=== PATIENT | female | born 1975 | race Caucasian/White ===

== ENCOUNTER 2017-02-01 02:42 | Emergency (ER) | payer BC, MEDICARE ==
--- NOTE | 2017-02-01 03:24 | ERPHSYRPT ---
- History of Present Illness Time Seen by Provider: 02/01/17 03:19 Source: patient Exam Limitations: no limitations Patient Subjective Stated Complaint: Pt sts that she sees Dr. Mcmahan for chronic pain, sts that she is supposed to see pain management, sts that Dr. Mcmahan wrote her a Rx for fentanyl patches wheich she has used for some time, sts that starting in November insurance no longer would cover them. Sts that her has been paying for one patch per week out of pocket until 2 weeks ago. Sts that she has been using her breakthrough [place] 7.5 more often due to dealing with withdrawal symptoms. Pt sts tonight with withdrawal symptoms of headache, feeling "nasty and irritable", cold, shaky, and like her mind is racing. Pt sts that she takes pain meds due to 3 back surgeries. Sts normal tolerable pain is 5/10, sts tonight pain is 7-8/10. Triage Nursing Assessment: Pt alert, oriented, answers all questions appropriately however has flight of ideas. Skin p/w/d, resps non-labored. Pt to room per wheelchair, able to transfer self wheelchair to bed. Pt resps non- labored. Lungs CTA bilat non-labored. Physician History: This is a 41-year-old white female who has a history of chronic back pain and a history of degenerative disc disease she has been seeing Dr. Mcmahan for this she has been prescribed fentanyl patches in the past and she has also been placed on hydrocodone for breakthrough pain She states that she has not been able to get her insurance to pay for her fentanyl patches and she has not had a patch for 2 weeks she states that she had been having the fentanyl patches purchased one at a time by her but the last when she got was 2 weeks ago She states that she has been given prescription of hydrocodone that she has been taking this more than she is supposed to for breakthrough pain. She apparently has been the referred to or is planning on being referred to a pain pest control operator She shows up stating she is having pain and she is requesting more pain medicines. Past medical history includes migraines, anxiety, degenerative disc disease, GERD, gallbladder disease, anxiety, bipolar disorder, chronic pain, fibromyalgia , diverticulosis, polycystic ovary disease, microdiscectomy Past surgical history includes , thermal ablation, D&C, back surgery Timing/Duration: week(s) (patient with chronic pain states she has not had a fentanyl patch for 2 weeks states states that she has a couple [place] tablets left) Severity: moderate Modifying Factors: Improves With: nothing Associated Symptoms: malaise (chronic back pain), No nausea, No vomiting, No abdominal pain, No shortness of breath, No heartburn, No diaphoresis, No cough, No chills, No chest pain, No fever, No headaches, No loss of appetite, No syncope, No seizure, No weakness Allergies/Adverse Reactions: No Known Drug Allergies Allergy (Verified 02/01/17 03:06) Home Medications: Cyclobenzaprine HCl [Flexeril] 10 mg PO TID PRN 12/18/13 [History] Fentanyl 75Mcg Patch [Duragesic 75 MCG Patch] 75 mcg TOP Q3D 12/18/13 [ History] Fluticasone Propionate [Flonase NASAL] 2 spray NS DAILY 12/18/13 [History] Meloxicam 7.5 mg [Mobic 7.5 MG] 7.5 mg PO UD 12/18/13 [History] Omeprazole 20 MG [Prilosec 20 mg] 40 mg PO HS 12/18/13 [History] Propranolol HCl [Inderal LA] 80 mg PO DAILY 12/18/13 [History] Sumatriptan Succinate [Imitrex 50 mg] 100 mg PO DAILY PRN PRN 12/18/13 [History] Gabapentin [Neurontin] 300 mg PO TID 05/10/14 [History] Betamethasone Valerate 1 applic TOP DAILY 02/09/16 [History] Buspirone HCl 5 mg [Buspar 5 mg] 5 mg PO BID 02/09/16 [History] Lorazepam 1 mg [Ativan 1 MG] 0.5 mg PO TID 02/09/16 [History] Topiramate 100 mg [Topamax 100 MG] 100 mg PO BID 02/09/16 [History] Amoxicillin/Potassium Clav [Augmentin 875-125 Tablet] 875 mg PO BID 02/01/17 [ History] Hydrocodone Bit/Acetaminophen [[place] 7.5-325 Tablet] 1 each PO DAILY 02/01/17 [ History] Trazodone HCl 100 mg PO HS 02/01/17 [History] Venlafaxine HCl [Effexor Xr] 150 mg PO DAILY 02/01/17 [History] Ziprasidone HCl [Geodon] 160 mg PO HS 02/01/17 [History] Zydus 20 mg PO DAILY 02/01/17 [History] Hx Influenza Vaccination/Date Given: Yes (2012) Hx Pneumococcal Vaccination/Date Given: Yes (2012) Immunizations Up to Date: Yes - Review of Systems Constitutional: No Fever, No Chills Eyes: No Symptoms Ears, Nose, & Throat: No Symptoms Respiratory: No Cough, No Dyspnea Cardiac: No Chest Pain, No Edema, No Syncope Abdominal/Gastrointestinal: No Abdominal Pain, No Nausea, No Vomiting, No Diarrhea Genitourinary Symptoms: No Dysuria Musculoskeletal: Back Pain, No Neck Pain Skin: No Rash Neurological: Other (patient states she feels anxious because she is running out of pain mrds) Psychological: No Symptoms Endocrine: No Symptoms All Other Systems: Reviewed and Negative - Past Medical History Pertinent Past Medical History: Yes Neurological History: Migraines ENT History: Other Cardiac History: High Cholesterol Respiratory History: No Pertinent History Endocrine Medical History: No Pertinent History Musculoskeletal History: Other GI Medical History: GERD, Gallbladder Disease History: No Pertinent History Psycho-Social History: Anxiety, Bipolar Female Reproductive Disorders: Other Other Medical History: chronic pain problems - Past Surgical History Past Surgical History: Yes Neuro Surgical History: No Pertinent History Cardiac: No Pertinent History Respiratory: No Pertinent History Gastrointestinal: Cholecystectomy Genitourinary: No Pertinent History Musculoskeletal: Other Female Surgical History: Section, Tubal Ligation Other Surgical History: 3 back surgeries - Social History Smoking Status: Never smoker Exposure to second hand smoke: No Drug Use: none Patient Lives Alone: No - Female History Hx Last Menstrual Period: 01/23/2017 - Nursing Vital Signs Nursing Vital Signs: Initial Vital Signs Temperature 97.7 F Temperature Source Oral Pulse Rate 79 Respiratory Rate 16 Blood Pressure [Right Arm] 100/69 Pain Intensity 8 - Physical Exam General Appearance: no apparent distress, alert, other (Well-developed well- nourished white female she does not appear to be in acute distress) Eye Exam: PERRL/EOMI, eyes nml inspection Ears, Nose, Throat Exam: normal ENT inspection, TMs normal, pharynx normal, moist mucous membranes Neck Exam: normal inspection, non-tender, supple, full range of motion Respiratory Exam: normal breath sounds, lungs clear, No respiratory distress Cardiovascular Exam: regular rate/rhythm, normal heart sounds, normal peripheral pulses Gastrointestinal/Abdomen Exam: soft, normal bowel sounds, No tenderness, No mass Back Exam: normal inspection, normal range of motion, No CVA tenderness, No vertebral tenderness Extremity Exam: normal inspection, normal range of motion, pelvis stable Neurologic Exam: alert, oriented x 3, cooperative, normal mood/affect, nml cerebellar function, nml station & gait, sensation nml, No motor deficits Skin Exam: normal color, warm, dry, No rash Lymphatic Exam: No adenopathy SpO2 Interpretation: normal (98%) SpO2: 98 Oxygen Delivery: Room Air Ordered Tests: Medication Summary Discontinued Medications Generic Name Dose Route Start Last Admin Trade Name Armandq PRN Reason Stop Dose Admin Ketorolac Tromethamine 60 mg 02/01/17 03:37 02/01/17 03:42 Toradol 30 Mg Injection IM 02/01/17 03:38 60 mg STAT ONE Administration Ketorolac Tromethamine Confirm 02/01/17 03:38 Toradol 30 Mg Injection Administered 02/01/17 03:39 Dose 30 mg .ROUTE .STK-MED ONE Ketorolac Tromethamine Confirm 02/01/17 03:43 Toradol 30 Mg Injection Administered 02/01/17 03:44 Dose 30 mg .ROUTE .STK-MED ONE Promethazine HCl Confirm 02/01/17 03:38 Phenergan 25 Mg Inj Administered 02/01/17 03:39 Dose 25 mg .ROUTE .STK-MED ONE - Progress Progress: improved Progress Note: 02/01/17 03:29 Is a 41-year-old white female with history of chronic pain who has been on fentanyl in the past she states she hasn't gotten prescription from Dr. Mcmahan for fentanyl patches however she states she's been having problems paying for them she states her last fentanyl patch was 2 weeks ago. She states she believes that she has more available to her but she cannot afford to pay for them she further states that she has a prescription for hydrocodone 7.5/325 tablets which she filled on December 03, 2016 which was for breakthrough pain she states she has been taking more these and she is supposed to she has told the nurse that she has a couple of these with her she also was prescrib lorazepam 0.5 mg which she was given 45 tablets on January 19, 2017 she states she does have lorazepam at home. She feels like she is having withdrawal from narcotics and she is interested in receiving pain medications here. I have reviewed the patient's inspect report she has been receiving fentanyl patches the last time was January 19, 2017 she appears to have been receiving these approximately once a week dating back to December 03, 2016 patient has also been given a prescription for Ativan 0.5 mg #45 dated the 2016 and this appears to have been on a fairly regular basis as well patient had also received is noted hydrocodone 7. 5/02/16 #90 tablets on December 03, 2016 Patient really does not appear to be in acute withdrawal she is in no distress she appears to be quite relaxed Physical examination some mild tenderness on her posterior lumbar region bilaterally. Vitals are stable. I've discussed the case with Dr. Mcmahan, I told her that the patient really does not appear to be in acute withdrawal. Dr. Mcmahan states that she would prefer I do not give the patient narcotic analgesia at this time. She would like to have the patient contact her office tomorrow morning. Patient also has indicated that she had planning on seeing a pain pest control operator at some time. I have offered the patient an injection of Toradol she states she would be happy to receive this. an injection of Phenergan actually give her tablet has no actual her we'll give her I also will give patient Phenergan 25 mg IM. The patient really does not exhibit the usual symptoms that I have seen in the past with narcotic withdrawal. 02/01/17 03:43 I had considered giving the patient Phenergan however patient is apparently on Geodon, therefore I have decided not to give the patient Phenergan prescription due to interaction with Geodon and concern for prolongation of QT interval. will destroy the prescription. Initial order was placed for Phenergan however this was discontinued. Patient will be given Toradol IM. - Departure Time of Disposition: 03:34 Departure Disposition: Home Clinical Impression: Chronic back pain, rule out narcotic seeking behavior Condition: Fair Critical Care Time: No Referrals: ZHANG MCMAHAN [Primary Care Provider] - Additional Instructions: Return home. Plenty of fluids. Narcotic analgesia as prescribed by your family doctor. Continue other medications as prescribed by your family doctor. Follow-up with your family doctor call her office tomorrow morning. Return for acute distress or for severe symptoms. Prescriptions: Promethazine HCl 25 mg [Phenergan 25 mg] 25 mg PO Q4-6HPRN PRN #12 tablet PRN Reason: nausea and vomiting
[2017-02-01] MEDS ORDERED: TORAdol 30 mg Injection IM ONE (03:37)
[2017-02-01] MEDS ORDERED: TORAdol 30 mg Injection ONE ×2 (03:38→03:43)
[2017-02-01] MEDS ORDERED: Phenergan 25 MG INJ ONE (03:38)
[2017-02-01 04:22] VITALS: BP 99/61; PULSE 56; O2SAT 96
== END 2017-02-01 04:10 | disposition home or self-care (01) ==
LOC: ED 02:42
DX: M54.9 Dorsalgia, unspecified (principal); G89.29 Other chronic pain; E78.00 Pure hypercholesterolemia, unspecified
CPT/HCPCS: 96372; 99283; J1885; J2550

== ENCOUNTER 2018-08-07 16:54 | Emergency (ER) | payer BC, MEDICARE ==
--- NOTE | 2018-08-07 17:11 | ERPHSYRPT ---
- History of Present Illness Time Seen by Provider: 08/07/18 17:10 Source: patient Exam Limitations: no limitations Physician History: 42 y/o white female presents with low back pain worsening over 2 days. pt denies trauma or fall. pt is morbidly obese and has chronic lbp. pt has flare up of her lbp once or twice a year. pt has had low back surgery in the past. her usual daily preventive back pain meds not helping. they include, gabapentin , flexeril and meloxicam. Timing/Duration: day(s) (2) Method of Injury: unknown (no known trauma or injury) Quality: sharp, cramping, other (spasm) Back Pain Location: lumbar spine, paraspinous muscles Severity of Pain-Max: moderate Severity of Pain-Current: moderate Modifying Factors: Improves With: movement (worsens) Associated Symptoms: lower back pain, muscle spasms, No fever, No chills, No urinary incontinence, No nausea, No vomiting, No weakness, No sensory/motor loss , No tingling in legs/feet Previous symptoms: same symptoms as today Allergies/Adverse Reactions: No Known Drug Allergies Allergy (Verified 02/01/17 03:06) Home Medications: Cyclobenzaprine HCl [Flexeril] 10 mg PO TID PRN 12/18/13 [History] Fentanyl 75Mcg Patch [Duragesic 75 MCG Patch] 75 mcg TOP Q3D 12/18/13 [ History] Fluticasone Propionate [Flonase NASAL] 2 spray NS DAILY 12/18/13 [History] Meloxicam 7.5 mg [Mobic 7.5 MG] 7.5 mg PO UD 12/18/13 [History] Omeprazole 20 MG [Prilosec 20 mg] 40 mg PO HS 12/18/13 [History] Propranolol HCl [Inderal LA] 80 mg PO DAILY 12/18/13 [History] SUMAtriptan succinate [Imitrex 50 mg] 100 mg PO DAILY PRN PRN 12/18/13 [History] Gabapentin [Neurontin] 300 mg PO TID 05/10/14 [History] Betamethasone Valerate 1 applic TOP DAILY 02/09/16 [History] Buspirone HCl 5 mg [Buspar 5 mg] 5 mg PO BID 02/09/16 [History] Lorazepam 1 mg [Ativan 1 MG] 0.5 mg PO TID 02/09/16 [History] Topiramate 100 mg [Topamax 100 MG] 100 mg PO BID 02/09/16 [History] Amoxicillin/Potassium Clav [Augmentin 875-125 Tablet] 875 mg PO BID 02/01/17 [ History] Hydrocodone Bit/Acetaminophen [[place] 7.5-325 Tablet] 1 each PO DAILY 02/01/17 [ History] Trazodone HCl 100 mg PO HS 02/01/17 [History] Venlafaxine HCl [Effexor Xr] 150 mg PO DAILY 02/01/17 [History] Ziprasidone HCl [Geodon] 160 mg PO HS 02/01/17 [History] Zydus 20 mg PO DAILY 02/01/17 [History] Hx Influenza Vaccination/Date Given: Yes (2012) Hx Pneumococcal Vaccination/Date Given: Yes (2012) - Review of Systems Constitutional: No Symptoms, No Fever, No Chills Eyes: No Symptoms, No Discharge, No Eye Pain Ears, Nose, & Throat: No Symptoms, No Ear Pain Respiratory: No Symptoms, No Cough, No Dyspnea, No Stridor, No Wheezing Cardiac: No Symptoms, No Chest Pain, No Palpitations, No Syncope Abdominal/Gastrointestinal: No Symptoms, No Abdominal Pain, No Nausea, No Vomiting, No Diarrhea Genitourinary Symptoms: No Symptoms, No Dysuria, No Frequency, No Hematuria Musculoskeletal: Back Pain Skin: No Symptoms, No Cellulitis Neurological: No Symptoms, No Dizziness, No Headache Psychological: No Symptoms, No Anxiety Endocrine: No Symptoms Hematologic/Lymphatic: No Symptoms Immunological/Allergic: No Symptoms All Other Systems: Reviewed and Negative - Past Medical History Pertinent Past Medical History: Yes Neurological History: Migraines ENT History: Other Cardiac History: High Cholesterol Respiratory History: No Pertinent History Endocrine Medical History: No Pertinent History Musculoskeletal History: Other GI Medical History: GERD, Gallbladder Disease History: No Pertinent History Psycho-Social History: Anxiety, Bipolar Female Reproductive Disorders: Other Other Medical History: chronic pain problems - Past Surgical History Past Surgical History: Yes Neuro Surgical History: No Pertinent History Cardiac: No Pertinent History Respiratory: No Pertinent History Gastrointestinal: Cholecystectomy Genitourinary: No Pertinent History Musculoskeletal: Other Female Surgical History: Section, Tubal Ligation Other Surgical History: 3 back surgeries - Social History Smoking Status: Never smoker Exposure to second hand smoke: No Drug Use: none Patient Lives Alone: No - Physical Exam General Appearance: moderate distress, alert, anxiety Eye Exam: PERRL/EOMI, eyes nml inspection Ears, Nose, Throat Exam: normal ENT inspection Neck Exam: normal inspection, non-tender, supple, full range of motion Respiratory Exam: normal breath sounds, lungs clear, No chest tenderness, No respiratory distress, No airway intact, No accessory muscle use, No rhonchi, No wheezing Cardiovascular Exam: regular rate/rhythm, normal heart sounds, normal peripheral pulses Gastrointestinal Exam: soft, normal bowel sounds, No tenderness, No guarding, No rebound Pelvic Exam: not done Rectal Exam: not done Back Exam: normal inspection, decreased range of motion, muscle spasm, No vertebral tenderness Extremity Exam: normal inspection, normal range of motion, pelvis stable Neurologic Exam: alert, oriented x 3, cooperative, can operator II-XII nml as tested Skin Exam: normal color, warm, dry Lymphatic Exam: No adenopathy SpO2 Interpretation: normal Oxygen Delivery: Room Air - Course Nursing assessment & vital signs reviewed: Yes Ordered Tests: Medication Summary Discontinued Medications Generic Name Dose Route Start Last Admin Trade Name Freq PRN Reason Stop Dose Admin Diazepam 5 mg 08/07/18 17:21 Valium 10 Mg/2 Ml Syringe IM 08/07/18 17:22 STAT ONE Hydromorphone HCl 1 mg 08/07/18 17:18 Hydromorphone 1 Mg/Ml Ampule IM 08/07/18 17:19 STAT ONE Methylprednisolone Sodium Succinate 125 mg 08/07/18 17:20 Solu-Medrol 125 Mg IM 08/07/18 17:21 STAT ONE Promethazine HCl 12.5 mg 08/07/18 17:18 Phenergan 25 Mg Inj IM 08/07/18 17:19 STAT ONE - Progress Progress: pain not gone completely, re-examined Counseled pt/family regarding: diagnosis, need for follow-up - Departure Time of Disposition: 17:31 Departure Disposition: Home Clinical Impression: Low back pain Condition: Stable Critical Care Time: No Referrals: ZHANG BLANCAS [Primary Care Provider] - Additional Instructions: continue your medication as prescribed. follow up with your prescribing doctor tomorrow for further management Prescriptions: Hydrocodone/APAP 5/325 [[place] 5/325 mg] 1 each PO Q12H PRN PRN #4 tablet MDD 2 PRN Reason: Pain Prednisone 10 mg [Deltasone 10 mg] 10 mg PO TID #12 tablet
[2018-08-07] MEDS ORDERED: Hydromorphone 1 mg/ml Ampule IM ONE (17:18)
[2018-08-07] MEDS ORDERED: Phenergan 25 MG INJ IM ONE (17:18)
[2018-08-07] MEDS ORDERED: solu-MEDROL 125 MG IM ONE (17:20)
[2018-08-07] MEDS ORDERED: VALIUM 10 MG/2 ML SYRINGE IM ONE (17:21)
[2018-08-07] MEDS ORDERED: Phenergan 25 MG INJ ONE (17:31)
[2018-08-07] MEDS ORDERED: solu-MEDROL 125 MG ONE (17:32)
[2018-08-07] MEDS ORDERED: Hydromorphone 1 mg/ml Ampule ONE (17:32)
[2018-08-07 18:14] VITALS: BP 103/61; PULSE 81; O2SAT 94
== END 2018-08-07 19:16 | disposition home or self-care (01) ==
LOC: ED 16:54
DX: M54.5 Low back pain (principal); M62.830 Muscle spasm of back; Z79.899 Other long term (current) drug therapy
CPT/HCPCS: 96372; 99284; J1170; J2550; J2930; J3360

== ENCOUNTER 2021-09-20 13:46 | Day surgery (SDC) | payer BC, MEDICARE ==
[2021-09-20] MEDS ORDERED: DIPRIVAN 200 MG/20 ML IV ONE (13:47)
[2021-09-20] MEDS ORDERED: Depo-Medrol 40 MG/ML IM ONE (13:47)
[2021-09-20] MEDS ORDERED: Xylocaine 1% Vial 30 ML PF IJ ONE (13:47)
[2021-09-20] MEDS ORDERED: LIDOCAINE HCL 2% 100 MG/5 ML IJ ONE (13:47)
--- NOTE | 2021-09-20 17:09 | XRAY ---
Indication: Bilateral L4-S1 MBB. Intraoperative fluoroscopy provided for 15 seconds. Single digital spot image submitted for interpretation demonstrate posterior needle tips projecting over the expected left and right L4-S1 nerve roots. Correlate with intraoperative findings/report.
[2021-09-20] MEDS ORDERED: Lactated Ringers 1,000 ML IV ONE (17:28)
--- NOTE | 2021-09-20 17:29 | XRAY ---
15 seconds fluoroscopy time in surgery for bilateral L4-S1 MBB.
== END 2021-09-20 16:18 | disposition home or self-care (01) ==
LOC: SDC-PAIN 13:46
PROVIDERS: ATTEND Psychiatry & Neurology Pain Medicine
DX: M47.816 Spondylosis without myelopathy or radiculopathy, lumbar region (principal); F32.9 Major depressive disorder, single episode, unspecified; F41.9 Anxiety disorder, unspecified; I51.9 Heart disease, unspecified; G43.909 Migraine, unspecified, not intractable, without status migrainosus; M19.90 Unspecified osteoarthritis, unspecified site; E28.2 Polycystic ovarian syndrome; Z79.899 Other long term (current) drug therapy
CPT/HCPCS: 64493; 64494; 72020; 77002; 84703; J1030; J2001; J2704

== ENCOUNTER 2021-10-11 12:43 | Day surgery (SDC) | payer BC, MEDICARE ==
[2021-10-11] MEDS ORDERED: BUPIVACAINE 0.5% VIAL IJ ONE (12:44)
[2021-10-11] MEDS ORDERED: Depo-Medrol 40 MG/ML IM ONE (12:44)
[2021-10-11] MEDS ORDERED: DIPRIVAN 200 MG/20 ML IV ONE (14:25)
[2021-10-11] MEDS ORDERED: Lactated Ringers 1,000 ML IV ONE (14:50)
--- NOTE | 2021-10-11 15:15 | XRAY ---
Indication: Bilateral L4-S1 MBB. Intraoperative fluoroscopy provided for 12 seconds. Single digital spot image submitted for interpretation demonstrates posterior needle tips projecting over the expected left and right L4-S1 nerve roots. Correlate with intraoperative findings/report.
--- NOTE | 2021-10-11 15:28 | XRAY ---
12 seconds fluoroscopy time in surgery for bilateral L4-S1 MBB.
== END 2021-10-11 15:05 | disposition home or self-care (01) ==
LOC: SDC-PAIN 12:43
PROVIDERS: ATTEND Psychiatry & Neurology Pain Medicine
DX: M47.816 Spondylosis without myelopathy or radiculopathy, lumbar region (principal); Z79.891 Long term (current) use of opiate analgesic
CPT/HCPCS: 64493; 64494; 72020; 77002; 84703; J1030; J2704

== ENCOUNTER 2021-11-15 12:30 | Day surgery (SDC) | payer BC, MEDICARE ==
[2021-11-15] MEDS ORDERED: BUPIVACAINE 0.5% VIAL IJ ONE (12:31)
[2021-11-15] MEDS ORDERED: DIPRIVAN 200 MG/20 ML IV ONE (12:31)
[2021-11-15] MEDS ORDERED: Depo-Medrol 40 MG/ML IM ONE (12:31)
[2021-11-15] MEDS ORDERED: Xylocaine 1% Vial 30 ML PF IJ ONE (12:31)
[2021-11-15] MEDS ORDERED: Lactated Ringers 1,000 ML IV ONE (14:13)
--- NOTE | 2021-11-15 16:48 | XRAY ---
Indication: Right L4-S1 RFA. Intraoperative fluoroscopy provided for 23 seconds. 3 digital spot image submitted for interpretation demonstrates posterior needle tips projecting over the expected right L4-S1 nerve roots. Correlate with intraoperative findings/report.
--- NOTE | 2021-11-15 16:50 | XRAY ---
23 seconds of fluoroscopy was used in surgery for a right L4-S1 RFA.
== END 2021-11-15 15:15 | disposition home or self-care (01) ==
LOC: SDC-PAIN 12:30
PROVIDERS: ATTEND Psychiatry & Neurology Pain Medicine
DX: M47.816 Spondylosis without myelopathy or radiculopathy, lumbar region (principal)
CPT/HCPCS: 64635; 64636; 72100; 77002; 84703; J1030; J2001; J2704

== ENCOUNTER 2022-02-15 13:12 | Day surgery (SDC) | payer BC, MEDICARE ==
[2022-02-15] MEDS ORDERED: Depo-Medrol 40 MG/ML IM ONE (13:13)
[2022-02-15] MEDS ORDERED: BUPIVACAINE 0.5% VIAL IJ ONE (13:13)
[2022-02-15] MEDS ORDERED: Xylocaine 1% Vial 30 ML PF IJ ONE (13:13)
[2022-02-15] MEDS ORDERED: Lactated Ringers 1,000 ML IV ONE (14:56)
[2022-02-15] MEDS ORDERED: DIPRIVAN 200 MG/20 ML IV ONE (15:00)
--- NOTE | 2022-02-15 16:35 | XRAY ---
36 seconds of fluoroscopy was used in surgery for a left L4-S1 RFA.
== END 2022-02-15 15:42 | disposition home or self-care (01) ==
LOC: SDC-PAIN 13:12
PROVIDERS: ATTEND Psychiatry & Neurology Pain Medicine
DX: M47.816 Spondylosis without myelopathy or radiculopathy, lumbar region (principal); Z79.899 Other long term (current) drug therapy
CPT/HCPCS: 64635; 64636; 72100; 77002; 84703; J1030; J2001; J2704

== ENCOUNTER 2022-09-05 14:28 | Day surgery (SDC) | payer BC, MEDICARE ==
[2022-09-05] MEDS ORDERED: BUPIVACAINE 0.5% VIAL IJ ONE (14:29)
[2022-09-05] MEDS ORDERED: LIDOCAINE HCL 1% 50 MG/5 ML VL PF IJ ONE (14:29)
[2022-09-05] MEDS ORDERED: Depo-Medrol 40 MG/ML IM ONE (14:29)
[2022-09-05] MEDS ORDERED: DIPRIVAN 200 MG/20 ML IV ONE (16:30)
[2022-09-05] MEDS ORDERED: Lactated Ringers 1,000 ML IV ONE (16:45)
--- NOTE | 2022-09-05 18:44 | XRAY ---
Indication: Right L4-S1 RFA. Intraoperative fluoroscopy provided for 27 seconds. 4 digital spot image submitted for interpretation demonstrates posterior needle tips projecting over the expected right L4-S1 nerve roots. Correlate with intraoperative findings/report.
--- NOTE | 2022-09-06 08:41 | XRAY ---
27 seconds of fluoroscopy was used in surgery for a right L4-S1 RFA.
== END 2022-09-05 16:58 | disposition home or self-care (01) ==
LOC: SDC-PAIN 14:28
PROVIDERS: ATTEND Psychiatry & Neurology Pain Medicine
DX: M47.816 Spondylosis without myelopathy or radiculopathy, lumbar region (principal); Z79.899 Other long term (current) drug therapy
CPT/HCPCS: 64635; 64636; 72100; 77002; 81025; J1030; J2001; J2704

== ENCOUNTER 2022-10-10 14:21 | Day surgery (SDC) | payer BC, MEDICARE ==
[2022-10-10] MEDS ORDERED: BUPIVACAINE 0.5% VIAL IJ ONE (14:22)
[2022-10-10] MEDS ORDERED: Depo-Medrol 40 MG/ML IM ONE (14:22)
[2022-10-10] MEDS ORDERED: Xylocaine 1% Vial 30 ML PF IJ ONE (14:22)
[2022-10-10] MEDS ORDERED: DIPRIVAN 200 MG/20 ML IV ONE (16:06)
[2022-10-10] MEDS ORDERED: Lactated Ringers 1,000 ML IV ONE (16:39)
--- NOTE | 2022-10-10 17:10 | XRAY ---
Indication: Left L4-S1 RFA. Intraoperative fluoroscopy provided for 19 seconds. 3 digital spot images submitted for interpretation demonstrates posterior needle tips projecting over the expected left L4-S1 nerve roots. Correlate with intraoperative findings/report.
--- NOTE | 2022-10-10 17:12 | XRAY ---
19 seconds of fluoroscopy was used in surgery for a left L4-S1 RFA.
== END 2022-10-10 16:45 | disposition home or self-care (01) ==
LOC: SDC-PAIN 14:21
PROVIDERS: ATTEND Psychiatry & Neurology Pain Medicine
DX: M47.816 Spondylosis without myelopathy or radiculopathy, lumbar region (principal); Z79.899 Other long term (current) drug therapy
CPT/HCPCS: 64635; 64636; 72100; 77002; 81025; J1030; J2001; J2704

== ENCOUNTER 2023-03-20 11:40 | Day surgery (SDC) | payer BC, MEDICARE ==
[2023-03-20] MEDS ORDERED: BUPIVACAINE 0.5% VIAL IJ ONE (11:41)
[2023-03-20] MEDS ORDERED: Depo-Medrol 40 MG/ML IM ONE (11:41)
[2023-03-20 12:11] LABS: HCG URINE TEST NEGATIVE (NEGATIVE)
[2023-03-20] MEDS ORDERED: DIPRIVAN 200 MG/20 ML IV ONE (12:56)
[2023-03-20] MEDS ORDERED: Lactated Ringers 1,000 ML IV ONE (14:17)
--- NOTE | 2023-03-20 16:35 | XRAY ---
Indication: Right shoulder and subacromial bursa injection. Intraoperative fluoroscopy provided for 19 seconds. 2 digital spot image submitted for interpretation demonstrates needle tip projecting over the right glenohumeral joint superiorly. Second needle tip subacromial. Small amount of contrast injected for both needle tip placement. Correlate with intraoperative findings/report.
--- NOTE | 2023-03-20 16:37 | XRAY ---
19 seconds of fluoroscopy was used in surgery for a right intra-articular shoulder and subacromial bursa injection.
== END 2023-03-20 13:30 | disposition home or self-care (01) ==
LOC: SDC-PAIN 11:40
PROVIDERS: ATTEND Psychiatry & Neurology Pain Medicine
DX: M19.011 Primary osteoarthritis, right shoulder (principal); M75.51 Bursitis of right shoulder; Z79.899 Other long term (current) drug therapy
CPT/HCPCS: 20610; 36415; 73030; 77002; 81025; J1030; J2704; Q9966

== ENCOUNTER 2023-07-10 15:42 | Day surgery (SDC) | payer BC, MEDICARE ==
[2023-07-10] MEDS ORDERED: Depo-Medrol 80 MG/ML IM ONE (15:43)
[2023-07-10] MEDS ORDERED: BUPIVACAINE 0.5% VIAL IJ ONE (15:43)
[2023-07-10 16:30] LABS: HCG URINE TEST NEGATIVE (NEGATIVE)
[2023-07-10] MEDS ORDERED: DIPRIVAN 200 MG/20 ML IV ONE (17:30)
[2023-07-10] MEDS ORDERED: Lactated Ringers 1,000 ML IV ONE (18:04)
--- NOTE | 2023-07-10 20:55 | XRAY ---
Indication: Right shoulder and subacromial bursa injection. Intraoperative fluoroscopy provided for 20 seconds. 3 digital spot images submitted for interpretation demonstrates needle tip projecting over right glenohumeral joint superiorly. Second needle tip subacromial. Small amount of contrast injected for both needle tip placement. Correlate with intraoperative findings/report.
--- NOTE | 2023-07-11 09:54 | XRAY ---
20 seconds of fluoroscopy was used in surgery for a right intra-articular shoulder and subacromial bursa injection.
== END 2023-07-10 18:00 | disposition home or self-care (01) ==
LOC: SDC-PAIN 15:42
PROVIDERS: ATTEND Psychiatry & Neurology Pain Medicine
DX: M19.011 Primary osteoarthritis, right shoulder (principal); Z79.899 Other long term (current) drug therapy
CPT/HCPCS: 20610; 73030; 77002; 81025; J1040; J2704; Q9966

== ENCOUNTER 2024-12-09 15:49 | Day surgery (SDC) | payer BC, MEDICARE ==
[2024-12-09] MEDS ORDERED: dexAMETHasone sodium phosphate IJ ONE (15:50)
[2024-12-09] MEDS ORDERED: Sodium Chloride 0.9(Preservative Free) 10 ML IJ ONE (15:50)
[2024-12-09] MEDS ORDERED: LIDOCAINE HCL 1% AMPUL 5 ML IJ ONE (15:50)
[2024-12-09 16:13] LABS: HCG URINE TEST NEGATIVE (NEGATIVE)
--- NOTE | 2024-12-09 21:22 | XRAY ---
57 seconds of fluoroscopy were used in surgery for a cervical MIMI.
--- NOTE | 2024-12-09 21:22 | XRAY ---
Indication: Cervical MIMI. Intraoperative fluoroscopy provided for 57 seconds. 3 digital spot image submitted for interpretation demonstrates needle tip projecting posterior to cervical thoracic junction. Small amount of contrast injected for needle tip placement. Correlate with intraoperative findings/report.
== END 2024-12-09 17:55 | disposition home or self-care (01) ==
LOC: SDC-PAIN 15:49
PROVIDERS: ATTEND Psychiatry & Neurology Pain Medicine
DX: M54.12 Radiculopathy, cervical region (principal)
CPT/HCPCS: 62321; 72040; 77003; 81025; J1100; Q9966

== ENCOUNTER 2025-03-24 15:46 | Day surgery (SDC) | payer BC, MEDICARE ==
[2025-03-24] MEDS ORDERED: dexAMETHasone sodium phosphate IJ ONE (15:47)
[2025-03-24] MEDS ORDERED: Sodium Chloride 0.9(Preservative Free) 10 ML IJ ONE (15:47)
[2025-03-24] MEDS ORDERED: LIDOCAINE HCL 1% AMPUL 5 ML IJ ONE (15:47)
[2025-03-24] MEDS ORDERED: Lactated Ringers IV ONE (15:47)
[2025-03-24 16:13] LABS: HCG URINE TEST NEGATIVE (NEGATIVE)
--- NOTE | 2025-03-24 19:42 | XRAY ---
Indication: Cervical MIMI. Intraoperative fluoroscopy provided for 42 seconds. 5 digital spot image submitted for interpretation demonstrates posterior needle tip projecting posterior to cervical thoracic junction. Small amount of contrast injected for needle tip placement. Correlate with intraoperative findings/report.
--- NOTE | 2025-03-24 19:46 | XRAY ---
42 seconds of fluoroscopy used in surgery for a cervical MIMI.
== END 2025-03-24 18:22 | disposition home or self-care (01) ==
LOC: SDC-PAIN 15:46
PROVIDERS: ATTEND Psychiatry & Neurology Pain Medicine
DX: M47.812 Spondylosis without myelopathy or radiculopathy, cervical region (principal)
CPT/HCPCS: 62321; 72040; 81025; J1100; Q9966